=== PATIENT | male | born 1960 | race Caucasian/White ===

== ENCOUNTER → 2020-08-25 | Outpatient (CLI) | payer BC ==
[~2020-08-25] MED LIST: ALDACTONE 25MG25 MG PO; BASAGLAR K100 UNIT/1 SC; CARVEDILOL12.5 MG PO; FUROSEMIDE40 MG PO; GLUCOPHAGE 500500 MG GT; LISINOPRIL5 MG PO; glucometer SC
[2020-08-25 08:16] LABS: BUN/CREATININE RATIO 16 (0-10)
[2020-08-25 08:21] LABS: HEMOGLOBIN 14.7 gm/dl (14.0-17.5); RED BLOOD COUNT 4.95 M/UL (4.20-5.50); WHITE BLOOD COUNT 6.3 K/UL (4.5-11.0)
[2020-08-26 07:10] LABS: VITAMIN D, 25-HYDROXY 61.5 ng/mL (30.0-100.0)
[2020-08-28 11:12] LABS: C-PEPTIDE, SERUM 3.2 ng/mL (1.1-4.4)
== END ==
LOC: LAB 07:14
PROVIDERS: Family Medicine
DX: E11.9 Type 2 diabetes mellitus without complications (principal); I10 Essential (primary) hypertension; Z13.220 Encounter for screening for lipoid disorders; Z12.5 Encounter for screening for malignant neoplasm of prostate; E55.9 Vitamin D deficiency, unspecified
CPT/HCPCS: 36415; 80053; 80061; 82043; 83036; 84153; 84439; 84443; 84481; 84681; 85027

== ENCOUNTER → 2021-02-23 | Outpatient (CLI) | payer BC ==
[2021-02-23 06:47] LABS: HEMOGLOBIN 14.8 gm/dl (14.0-17.5); RED BLOOD COUNT 5.18 M/UL (4.20-5.50); WHITE BLOOD COUNT 7.6 K/UL (4.5-11.0)
[2021-02-23 07:14] LABS: BUN/CREATININE RATIO 25 (0-10)
== END ==
LOC: LAB 06:02
PROVIDERS: Family Medicine
DX: E11.9 Type 2 diabetes mellitus without complications (principal); E78.5 Hyperlipidemia, unspecified; I10 Essential (primary) hypertension; E55.9 Vitamin D deficiency, unspecified
CPT/HCPCS: 80053; 80061; 84439; 84443; 85027

== ENCOUNTER → 2021-08-30 | Outpatient (CLI) | payer BC ==
[2021-08-30 06:40] LABS: HEMOGLOBIN 13.5 gm/dl (14.0-17.5); RED BLOOD COUNT 4.64 M/UL (4.20-5.50); WHITE BLOOD COUNT 6.4 K/UL (4.5-11.0)
[2021-08-30 07:08] LABS: BUN/CREATININE RATIO 19 (0-10)
== END ==
LOC: LAB 05:46
PROVIDERS: Nurse Practitioner Family
DX: Z13.220 Encounter for screening for lipoid disorders (principal); Z12.5 Encounter for screening for malignant neoplasm of prostate; I10 Essential (primary) hypertension; E11.9 Type 2 diabetes mellitus without complications; E55.9 Vitamin D deficiency, unspecified
CPT/HCPCS: 36415; 80053; 80061; 82570; 82607; 83036; 84156; 84439; 84443; 85025